=== PATIENT | female | born 1970 | race Caucasian/White ===

== ENCOUNTER 2024-09-07 15:07 | Emergency (ER) | payer OTHER ==
[~2024-09-07] VITALS: Ht 154.9 cm; Wt 78.2 kg
[2024-09-07 16:49] LABS: BASO % 0.5 % (0.0-1.0); EOS # 0.1 10^3/uL (0.0-0.5); EOS % 0.9 % (0.0-3.0); HEMATOCRIT 39.8 % (36.0-47.0); HEMOGLOBIN 13.4 g/dl (12.0-15.5); LYMPH # 1.3 10^3/uL (1.5-5.0); LYMPH % 16.8 % (24.0-44.0); MEAN CORPUSCULAR HEMOGLOBIN 29.8 pg (27.0-33.0); MEAN CORPUSCULAR HGB CONC 33.7 g/dl (32.0-36.5); MEAN CORPUSCULAR VOLUME 88.4 fl (80.0-96.0); MONO # 0.6 10^3/uL (0.0-0.8); NEUTROPHILS % 74.5 % (36.0-66.0); PLATELET COUNT, AUTOMATED 309 10^3/uL (150-450)
[2024-09-07] MEDS: OXYMETAZOLINE 0.05% NASAL SPRAY ONE (17:05)
[2024-09-07 17:11] LABS: ALBUMIN 3.8 G/DL (3.2-5.2); BILIRUBIN,TOTAL 0.3 MG/DL (0.3-1.2); CALCIUM LEVEL 9.2 MG/DL (8.5-10.1); CREATININE FOR GFR 1.06 MG/DL (0.55-1.30); POTASSIUM SERUM 4.3 MMOL/L (3.5-5.1); TOTAL PROTEIN 6.9 G/DL (5.7-8.2)
[2024-09-07 17:20] LABS: INR 0.89; PROTHROMBIN TIME 12.4 SECONDS (12.5-14.5)
[2024-09-07] MEDS: SILVER NITRATE APPLICATOR (1 = QTY 10) TOP ONE (18:20)
[2024-09-07] MEDS ORDERED: AMOX875T2 PO (19:07)
[2024-09-07 19:21] VITALS: BP 141/70; TEMP 97.5; O2SAT 98
== END 2024-09-07 19:24 | disposition home or self-care (01) ==
LOC: M ED 15:07
DX: R04.0 Epistaxis (principal)